=== PATIENT | female | born 1940 | race Caucasian/White ===

== ENCOUNTER 2018-07-20 13:33 | Day surgery (SDC) | payer MEDICARE, BC ==
[~2018-07-20] VITALS: Ht 172.7 cm; Wt 111.4 kg
[~2018-07-20 13:33] MED LIST: ASPI-611 PO; SOTA80TA73 PO
[2018-07-20] MEDS ORDERED: fentaNYL/PF 50MCG/1 ML 2ML syringe ONE ×2 (13:43)
[2018-07-20] MEDS ORDERED: MIDAZolam 5mg/5ml vial ONE (13:43)
[2018-07-20 13:45] VITALS: BP 172/82
[2018-07-20 15:41] VITALS: BP 142/74
[2018-07-20 15:49] VITALS: BP 132/70
[2018-07-20 15:59] VITALS: BP 133/68
[2018-07-20 16:09] VITALS: BP 137/61
== END 2018-07-20 16:20 | disposition home or self-care (01) ==
LOC: GI LAB 13:33
PROVIDERS: ATTEND Internal Medicine Gastroenterology
DX: R19.4 Change in bowel habit (principal); I48.91 Unspecified atrial fibrillation; I10 Essential (primary) hypertension; E66.9 Obesity, unspecified; M19.90 Unspecified osteoarthritis, unspecified site; I25.10 Atherosclerotic heart disease of native coronary artery without angina pectoris; Z86.79 Personal history of other diseases of the circulatory system; Z86.39 Personal history of other endocrine, nutritional and metabolic disease; Z90.710 Acquired absence of both cervix and uterus; Z95.0 Presence of cardiac pacemaker; Z68.37 Body mass index [BMI] 37.0-37.9, adult; Z88.1 Allergy status to other antibiotic agents; Z90.49 Acquired absence of other specified parts of digestive tract; Z88.5 Allergy status to narcotic agent; Z79.899 Other long term (current) drug therapy; Z98.890 Other specified postprocedural states
CPT/HCPCS: 45380; G0500; J2250; J3010; J7030; A4620

== ENCOUNTER 2021-01-29 06:04 | Day surgery (SDC) | payer MEDICARE, MEDICAID ==
[2021-01-28 12:53] LABS: BASOPHILS % (AUTO) 0.5 % (0-1); EOSINOPHILS # (AUTO) 0.3 X10'3 (0-0.9); HEMATOCRIT 48.4 % (35.0-45.0); HEMOGLOBIN 15.8 g/dl (12.0-16.0); LYMPHOCYTES # (AUTO) 1.2 X10'3 (1.1-4.8); LYMPHOCYTES % (AUTO) 14.1 % (21-51); MEAN CORPUSCULAR HEMOGLOBIN 29.9 PG (27.0-31.0); MEAN CORPUSCULAR HGB CONC 32.7 g/dL (33.0-36.5); MEAN CORPUSCULAR VOLUME 91.4 FL (78-98); MEAN PLATELET VOLUME 9.4 FL (7.4-10.4); NEUTROPHILS % (AUTO) 69.4 % (42-75); PLATELET COUNT 174 X10'3 (140-440); RED BLOOD COUNT 5.29 X10'6 (4.20-5.60); RED CELL DISTRIBUTION WIDTH 14.1 % (11.5-14.5); WHITE BLOOD COUNT 8.6 X10'3 (4.5-11.0)
[2021-01-28 13:04] LABS: PARTIAL THROMBOPLASTIN TIME 26 SECONDS (22-32)
[2021-01-28 13:15] LABS: ALBUMIN 3.5 G/DL (3.4-5.0); ANION GAP 7 (8-16); BLOOD UREA NITROGEN 19 MG/DL (7-18); BUN/CREATININE RATIO 21.3 (6.6-38.0); CALCIUM 9.8 MG/DL (8.5-10.1); CHLORIDE 103 MMOL/L (99-107); CREATININE 0.89 MG/DL (0.40-0.90); GLUCOSE 102 MG/DL (70-104); POTASSIUM 4.3 MMOL/L (3.5-5.1); SODIUM 139 MMOL/L (135-145); TOTAL CARBON DIOXIDE 28.6 MMOL/L (24-32); eGFR 61 ML/MIN
[2021-01-29] VITALS (10 sets, daily range): BP systolic 111–162; BP diastolic 60–97
[~2021-01-29] VITALS: Ht 172.7 cm; Wt 111.8 kg
[~2021-01-29 06:04] MED LIST changes: -ASPI-611 PO
[2021-01-29] MEDS ORDERED: LORazepam 0.5 MG tablet PO PRN (06:25)
[2021-01-29] MEDS ORDERED: diphenhydrAMINE 25mg capsule PO PRN (06:25)
[2021-01-29] MEDS ORDERED: LIDOcaine/PRILOcaine 5gm cream TP ONE (06:25)
[2021-01-29] MEDS ORDERED: normal saline 1,000 ML IV SCH (06:25)
[2021-01-29] MEDS ORDERED: POTA20TA19 PO (06:33)
[2021-01-29] MEDS ORDERED: FURO-149 PO (06:33)
[2021-01-29] MEDS ORDERED: ASPI-10 PO (06:33)
[2021-01-29] MEDS ORDERED: verapamil 2.5 mg/ml inj IV ONE (07:35)
[2021-01-29] MEDS ORDERED: midazolam 1 mg/ML 2ml injection ONE (07:35)
[2021-01-29] MEDS ORDERED: heparin 1,000unit/ml 10ml vial 10 ML ONE (07:35)
[2021-01-29] MEDS ORDERED: LIDOcaine 1% (10mg/ml)w/preservative injection 20ml MDV ONE (07:35)
[2021-01-29] MEDS ORDERED: fentaNYL/PF 50MCG/1 ML 2ML syringe ONE (07:35)
[2021-01-29] MEDS ORDERED: nitroGLYCERIN-Tridil 50MG/D5W 250 ML IV ONE (07:35)
[2021-01-29] MEDS ORDERED: iohexol 350 MG/ML 50ML vial IV ONE (07:36)
[2021-01-29] MEDS ORDERED: iohexol 350MG/ML 100ml bottle IV ONE (07:36)
[2021-01-29 09:23] LABS: ISTAT Hct ART 47 %PCV (35-48); ISTAT O2 SATURATION ARTERIAL 89 % (95-98); ISTAT SOURCE ART
[2021-01-29 11:23] LABS: ISTAT Hct MIX 46 %PCV (35-48); ISTAT O2 SATURATION MIX VENOUS 62 % (60-80); ISTAT SOURCE CAP
== END 2021-01-29 12:45 | disposition home or self-care (01) ==
LOC: SSTAY O 06:04
PROVIDERS: ATTEND Internal Medicine Cardiovascular Disease
DX: R06.02 Shortness of breath (principal); R53.83 Other fatigue; I25.10 Atherosclerotic heart disease of native coronary artery without angina pectoris; I48.0 Paroxysmal atrial fibrillation; I10 Essential (primary) hypertension; E78.5 Hyperlipidemia, unspecified; I50.31 Acute diastolic (congestive) heart failure; I27.29 Other secondary pulmonary hypertension; G62.9 Polyneuropathy, unspecified; E66.9 Obesity, unspecified; Z68.36 Body mass index [BMI] 36.0-36.9, adult; Z95.0 Presence of cardiac pacemaker; Z88.5 Allergy status to narcotic agent; Z79.899 Other long term (current) drug therapy; Z79.82 Long term (current) use of aspirin; Z90.710 Acquired absence of both cervix and uterus; Z90.49 Acquired absence of other specified parts of digestive tract; Z98.890 Other specified postprocedural states; Z82.49 Family history of ischemic heart disease and other diseases of the circulatory system
CPT/HCPCS: 36415; 76937; 80048; 82803; 85014; 85025; 85610; 85730; 93005; 93460; 99152; 99153; C1769; C1894; J1644; J2001; J2250; J3010; J7030; Q0163; Q9967; A4620; A5120; C1751; J3490

== ENCOUNTER 2022-09-23 15:16 | Inpatient (IN) | payer MEDICARE, MEDICAID ==
[~2022-09-23] VITALS: Ht 172.7 cm; Wt 115.8 kg
[~2022-09-23 15:16] MED LIST changes: +ASPI-10 PO; +FURO-149 PO; +POTA-207 PO
[2022-09-23] MEDS ORDERED: metolazone 2.5mg tablet PO STA (15:21)
[2022-09-23 15:57] LABS: BASOPHILS # (AUTO) 0.1 X10'3 (0-0.2); BASOPHILS % (AUTO) 0.7 % (0-1); EOSINOPHILS # (AUTO) 0.2 X10'3 (0-0.9); EOSINOPHILS % (AUTO) 2.1 % (0-6); HEMATOCRIT 52.3 % (35.0-45.0); HEMOGLOBIN 17.1 g/dl (12.0-16.0); LYMPHOCYTES # (AUTO) 1.5 X10'3 (1.1-4.8); LYMPHOCYTES % (AUTO) 17.7 % (21-51); MEAN CORPUSCULAR HEMOGLOBIN 30.4 PG (27.0-31.0); MEAN CORPUSCULAR HGB CONC 32.7 g/dL (33.0-36.5); MEAN CORPUSCULAR VOLUME 93.1 FL (78-98); MEAN PLATELET VOLUME 9.6 FL (7.4-10.4); MONOCYTES # (AUTO) 1.3 X10'3 (0-0.9); MONOCYTES % (AUTO) 14.7 % (2-12); NEUTROPHILS # (AUTO) 5.5 X10'3 (1.8-7.7); NEUTROPHILS % (AUTO) 64.8 % (42-75); PLATELET COUNT 166 X10'3 (140-440); RED BLOOD COUNT 5.62 X10'6 (4.20-5.60); RED CELL DISTRIBUTION WIDTH 16.1 % (11.5-14.5); WHITE BLOOD COUNT 8.5 X10'3 (4.5-11.0)
[2022-09-23 16:07] LABS: ALANINE AMINOTRANSFERASE 18 U/L (12-78); ALBUMIN 3.7 G/DL (3.4-5.0); ALKALINE PHOSPHATASE 203 IU/L (46-116); ANION GAP 10 (8-16); ASPARTATE AMINO TRANSFERASE 25 U/L (10-37); BLOOD UREA NITROGEN 29 MG/DL (7-18); BUN/CREATININE RATIO 25.2 (6.6-38.0); CALCIUM 9.9 MG/DL (8.5-10.1); CHLORIDE 103 MMOL/L (99-107); CREATININE 1.15 MG/DL (0.40-0.90); GLUCOSE 120 MG/DL (70-104); POTASSIUM 5.5 MMOL/L (3.5-5.1); SODIUM 135 MMOL/L (135-145); TOTAL CARBON DIOXIDE 22.1 MMOL/L (24-32); TOTAL PROTEIN 7.3 G/DL (6.4-8.2); eGFR 45 ML/MIN
[2022-09-23] MEDS ORDERED: furosemide 10 MG/1 ML 10ml inj IV ONE ×2 (16:35→21:45)
[2022-09-23] MEDS ORDERED: metoprolol tartrate 1mg/ml inj IV ONE (16:35)
[2022-09-23] MEDS ORDERED: potassium Cl 40MEQ/1/2NS 520ml 520 ML IV PRN (16:55)
[2022-09-23] MEDS ORDERED: bisacodyl 10mg suppository rectal RC PRN (16:55)
[2022-09-23] MEDS ORDERED: acetaminophen 325mg tablet PO PRN ×2 (16:55)
[2022-09-23] MEDS ORDERED: potassium Cl 20 mEq SR tablet PO PRN (16:55)
[2022-09-23] MEDS ORDERED: magnesium hydroxide 30ml (MOM) UD suspension PO PRN (16:55)
[2022-09-23] MEDS ORDERED: mag hydrox/Alum hydrox/simeth 30ml oral suspension PO PRN (16:55)
[2022-09-23] MEDS ORDERED: ondansetron/PF 4mg/2ml inj IV PRN (16:55)
[2022-09-23] MEDS ORDERED: PERFLUTREN PROTEIN-A MICROSPHR (Optison) 0.22 MG/ML 3ML VIAL IV ONE (16:55)
[2022-09-23] MEDS ORDERED: acetaminophen 650mg rectal suppository RC PRN (16:55)
[2022-09-23] MEDS ORDERED: diphenhydrAMINE 25mg capsule PO PRN (16:55)
[2022-09-23] MEDS ORDERED: magnesium 4gm in 100ml NS 100 ML IV PRN (16:55)
[2022-09-23] MEDS ORDERED: magnesium Cl slow-release 64mg tablet PO PRN (16:55)
[2022-09-23] MEDS ORDERED: TRAZ-251 PO (17:02)
[2022-09-23] MEDS ORDERED: POTA-207 PO (17:02)
[2022-09-23] MEDS ORDERED: FURO20TA4 PO (17:02)
[2022-09-23] MEDS ORDERED: SOTA80TA PO (17:02)
[2022-09-23] MEDS ORDERED: IBUP-1985 PO (17:02)
[2022-09-23] MEDS ORDERED: LIDO700A47 TP (17:02)
[2022-09-23] MEDS ORDERED: TRAM50TA2 PO (17:02)
[2022-09-23] MEDS ORDERED: LEVO50TA8 PO (17:02)
[2022-09-23] MEDS ORDERED: CYCL5TAB PO (17:02)
[2022-09-23] MEDS: amiodarone/D5 360MG/200ML BAG 200 ML IV SCH (17:28)
[2022-09-23] MEDS ORDERED: amiodarone 150mg/dext, iso-os 100 ML IV ONE (17:35)
[2022-09-23 17:38] LABS: HEMOGLOBIN A1C 5.8 % (4.5-6.2)
[2022-09-23] MEDS ORDERED: furosemide inj 100 MG in normal saline 100ml IV soln 90 ML IV SCH (17:45)
[2022-09-23] MEDS ORDERED: LIDOcaine 5% patch TP PRN (19:00)
[2022-09-23] MEDS: K and/or MAG REPLACEMENT MC SCH (20:00)
[2022-09-23] MEDS: docusate sod 100mg capsule PO SCH (22:39)
[2022-09-23] MEDS: carvedilol 6.25mg tablet PO SCH (22:39)
[2022-09-23] MEDS: traZODone 50mg tablet PO SCH (22:39)
[2022-09-24] MEDS: amiodarone/D5 360MG/200ML BAG 200 ML IV SCH ×4 (00:45→12:50)
[2022-09-24 03:36] LABS: BASOPHILS % (AUTO) 0.6 % (0-1); EOSINOPHILS # (AUTO) 0.1 X10'3 (0-0.9); EOSINOPHILS % (AUTO) 1.8 % (0-6); HEMATOCRIT 51.5 % (35.0-45.0); HEMOGLOBIN 16.9 g/dl (12.0-16.0); LYMPHOCYTES # (AUTO) 1.7 X10'3 (1.1-4.8); LYMPHOCYTES % (AUTO) 22.8 % (21-51); MEAN CORPUSCULAR HEMOGLOBIN 30.7 PG (27.0-31.0); MEAN CORPUSCULAR HGB CONC 32.9 g/dL (33.0-36.5); MEAN CORPUSCULAR VOLUME 93.4 FL (78-98); MONOCYTES # (AUTO) 1.2 X10'3 (0-0.9); MONOCYTES % (AUTO) 16.6 % (2-12); NEUTROPHILS # (AUTO) 4.3 X10'3 (1.8-7.7); NEUTROPHILS % (AUTO) 58.2 % (42-75); PLATELET COUNT 140 X10'3 (140-440); RED BLOOD COUNT 5.52 X10'6 (4.20-5.60); RED CELL DISTRIBUTION WIDTH 15.6 % (11.5-14.5); WHITE BLOOD COUNT 7.3 X10'3 (4.5-11.0)
[2022-09-24 03:51] LABS: ALANINE AMINOTRANSFERASE 18 U/L (12-78); ALBUMIN 3.6 G/DL (3.4-5.0); ALBUMIN/GLOBULIN RATIO 1.1 (1.1-1.5); ALKALINE PHOSPHATASE 183 IU/L (46-116); ANION GAP 8 (8-16); ASPARTATE AMINO TRANSFERASE 26 U/L (10-37); BILIRUBIN,TOTAL 1.3 MG/DL (0.1-1.0); BLOOD UREA NITROGEN 30 MG/DL (7-18); BUN/CREATININE RATIO 25.4 (6.6-38.0); CALCIUM 9.9 MG/DL (8.5-10.1); CHLORIDE 102 MMOL/L (99-107); CREATININE 1.18 MG/DL (0.40-0.90); GLUCOSE 114 MG/DL (70-104); POTASSIUM 4.2 MMOL/L (3.5-5.1); SODIUM 138 MMOL/L (135-145); TOTAL CARBON DIOXIDE 28.5 MMOL/L (24-32); eGFR 44 ML/MIN
[2022-09-24 03:56] LABS: CHOL/HDL RATIO 3.8 (0.00-4.99); CHOLESTEROL 106 MG/DL (0-200); HDL CHOLESTEROL 28 MG/DL (35-60); LDL CHOLESTEROL 67 MG/DL (50-100); PHOSPHORUS 4.1 MG/DL (2.3-4.5); TRIGLYCERIDES 91 MG/DL (20-135)
--- NOTE | 2022-09-24 04:19 | NUR ---
CALLED TO DISCUSS CONTINUING AMIODARONE DRIP. HE STATED HE WOULD LIKE IT TO CONTINUE FOR NOW. NOTIFIED THAT PT HAS HAD RUNS OF PVC'S. NO ORDERS AT THIS TIME
[2022-09-24 05:55] LABS: CLARITY,URINE CLEAR (Clear); GLUCOSE, URINE NEGATIVE (Neg); KETONES,URINE NEGATIVE (Neg); LEUKOCYTE ESTERASE ,URINE NEGATIVE (Neg); NITRITES, URINE NEGATIVE (Neg); OCCULT BLOOD,URINE NEGATIVE (Neg); PROTEIN,URINE NEGATIVE (Neg); UROBILINOGEN,URINE 0.2 E.U/dL (0.2-1.0)
[2022-09-24 05:56] LABS: COLOR,URINE STRAW (Yellow); UA COLLECTION TYPE NON-SPECIFIED
[2022-09-24] MEDS: K and/or MAG REPLACEMENT MC SCH ×2 (07:21→20:00)
[2022-09-24] MEDS: levoTHYROXINE 25mcg tablet PO SCH (07:54)
[2022-09-24] MEDS: docusate sod 100mg capsule PO SCH ×2 (07:54→21:23)
[2022-09-24] MEDS: carvedilol 6.25mg tablet PO SCH ×2 (07:55→21:23)
[2022-09-24] MEDS: furosemide 10 MG/1 ML 10ml inj IV SCH ×2 (07:55→21:23)
--- NOTE | 2022-09-24 08:20 | NUR ---
Doctor Carlee came by the see patient, new orders were verbally told to me to put in. New orders have been placed at this time.
[2022-09-24 09:06] LABS: BILIRUBIN,DIRECT 0.9 MG/DL (0-0.3)
[2022-09-24] MEDS: metolazone 2.5mg tablet PO SCH ×2 (09:52→21:25)
[2022-09-24] MEDS ORDERED: ondansetron 4mg rapidly disintigrating tab PO PRN (15:10)
[2022-09-24 18:09] VITALS: BP 103/62
[2022-09-24] MEDS: apixaban 5mg tablet PO SCH (21:24)
[2022-09-24] MEDS: traZODone 50mg tablet PO SCH (21:24)
[2022-09-24] MEDS: amiodarone 200mg tablet PO SCH (21:24)
[2022-09-24] MEDS: traMADol 50MG tablet PO PRN (21:32)
[2022-09-24 22:14] VITALS: BP 108/55
[2022-09-25 02:49] VITALS: BP 124/51
[2022-09-25] MEDS: cyclobenzaprine 10mg tablet PO PRN (04:38)
[2022-09-25 07:00] VITALS: BP 116/73
[2022-09-25 07:03] LABS: BASOPHILS % (AUTO) 0.5 % (0-1); EOSINOPHILS # (AUTO) 0.2 X10'3 (0-0.9); EOSINOPHILS % (AUTO) 3.2 % (0-6); HEMATOCRIT 48.9 % (35.0-45.0); HEMOGLOBIN 15.7 g/dl (12.0-16.0); LYMPHOCYTES # (AUTO) 0.8 X10'3 (1.1-4.8); LYMPHOCYTES % (AUTO) 10.5 % (21-51); MEAN CORPUSCULAR HEMOGLOBIN 29.5 PG (27.0-31.0); MEAN CORPUSCULAR VOLUME 92.2 FL (78-98); MEAN PLATELET VOLUME 9.1 FL (7.4-10.4); MONOCYTES # (AUTO) 1.1 X10'3 (0-0.9); MONOCYTES % (AUTO) 14.8 % (2-12); NEUTROPHILS # (AUTO) 5.2 X10'3 (1.8-7.7); PLATELET COUNT 145 X10'3 (140-440); RED CELL DISTRIBUTION WIDTH 15.8 % (11.5-14.5); WHITE BLOOD COUNT 7.3 X10'3 (4.5-11.0)
[2022-09-25 07:26] LABS: ALANINE AMINOTRANSFERASE 13 U/L (12-78); ALBUMIN 3.2 G/DL (3.4-5.0); ALBUMIN/GLOBULIN RATIO 1.1 (1.1-1.5); ALKALINE PHOSPHATASE 175 IU/L (46-116); ANION GAP 5 (8-16); ASPARTATE AMINO TRANSFERASE 23 U/L (10-37); BILIRUBIN,TOTAL 1.2 MG/DL (0.1-1.0); BLOOD UREA NITROGEN 34 MG/DL (7-18); BUN/CREATININE RATIO 28.6 (6.6-38.0); CALCIUM 9.4 MG/DL (8.5-10.1); CHLORIDE 100 MMOL/L (99-107); CREATININE 1.19 MG/DL (0.40-0.90); GLUCOSE 114 MG/DL (70-104); MAGNESIUM 1.8 MG/DL (1.5-2.4); PHOSPHORUS 4.5 MG/DL (2.3-4.5); POTASSIUM 3.2 MMOL/L (3.5-5.1); SODIUM 140 MMOL/L (135-145); TOTAL CARBON DIOXIDE 35.2 MMOL/L (24-32); TOTAL PROTEIN 6.2 G/DL (6.4-8.2); eGFR 43 ML/MIN
[2022-09-25] MEDS ORDERED: rivaroxaban 10mg tablet PO SCH (08:00)
[2022-09-25] MEDS: K and/or MAG REPLACEMENT MC SCH ×2 (08:00→19:04)
[2022-09-25] MEDS: docusate sod 100mg capsule PO SCH ×2 (08:16→19:16)
[2022-09-25] MEDS: apixaban 5mg tablet PO SCH ×2 (08:16→19:16)
[2022-09-25] MEDS: metolazone 2.5mg tablet PO SCH ×2 (08:16→19:16)
[2022-09-25] MEDS: carvedilol 6.25mg tablet PO SCH ×2 (08:16→19:16)
[2022-09-25] MEDS: amiodarone 200mg tablet PO SCH ×2 (08:16→19:16)
[2022-09-25] MEDS: furosemide 10 MG/1 ML 10ml inj IV SCH ×2 (08:17→19:17)
[2022-09-25] MEDS: potassium Cl 20 mEq SR tablet PO PRN ×3 (08:22→15:54)
[2022-09-25] MEDS: levoTHYROXINE 25mcg tablet PO SCH (08:22)
--- NOTE | 2022-09-25 11:57 | NUR ---
paged to confirm dosage of K+
[2022-09-25] MEDS ORDERED: potassium Cl 20 mEq SR tablet PO ONE (12:00)
[2022-09-25] MEDS ORDERED: furosemide 40mg/4ml inj IV ONE (12:00)
[2022-09-25 18:00] VITALS: BP 143/89
[2022-09-25] MEDS: traMADol 50MG tablet PO PRN (19:17)
[2022-09-25] MEDS: traZODone 50mg tablet PO SCH (20:09)
[2022-09-25 23:15] VITALS: BP 123/83
[2022-09-26 02:28] VITALS: BP 131/79
[2022-09-26 06:00] VITALS: BP 141/90
[2022-09-26 07:01] LABS: BASOPHILS % (AUTO) 0.4 % (0-1); EOSINOPHILS # (AUTO) 0.2 X10'3 (0-0.9); EOSINOPHILS % (AUTO) 2.9 % (0-6); HEMATOCRIT 49.7 % (35.0-45.0); HEMOGLOBIN 16.2 g/dl (12.0-16.0); LYMPHOCYTES # (AUTO) 0.8 X10'3 (1.1-4.8); LYMPHOCYTES % (AUTO) 10.1 % (21-51); MEAN CORPUSCULAR HGB CONC 32.7 g/dL (33.0-36.5); MEAN CORPUSCULAR VOLUME 91.8 FL (78-98); MEAN PLATELET VOLUME 8.9 FL (7.4-10.4); MONOCYTES # (AUTO) 1.2 X10'3 (0-0.9); MONOCYTES % (AUTO) 14.9 % (2-12); NEUTROPHILS % (AUTO) 71.7 % (42-75); PLATELET COUNT 152 X10'3 (140-440); RED BLOOD COUNT 5.41 X10'6 (4.20-5.60); RED CELL DISTRIBUTION WIDTH 15.6 % (11.5-14.5); WHITE BLOOD COUNT 8.4 X10'3 (4.5-11.0)
[2022-09-26 07:22] LABS: ALANINE AMINOTRANSFERASE 18 U/L (12-78); ALBUMIN 3.6 G/DL (3.4-5.0); ALBUMIN/GLOBULIN RATIO 1.1 (1.1-1.5); ALKALINE PHOSPHATASE 189 IU/L (46-116); ANION GAP 7 (8-16); ASPARTATE AMINO TRANSFERASE 26 U/L (10-37); BILIRUBIN,TOTAL 1.7 MG/DL (0.1-1.0); BLOOD UREA NITROGEN 38 MG/DL (7-18); BUN/CREATININE RATIO 25.5 (6.6-38.0); CALCIUM 9.7 MG/DL (8.5-10.1); CHLORIDE 97 MMOL/L (99-107); CREATININE 1.49 MG/DL (0.40-0.90); GLUCOSE 119 MG/DL (70-104); PHOSPHORUS 4.2 MG/DL (2.3-4.5); POTASSIUM 3.8 MMOL/L (3.5-5.1); SODIUM 139 MMOL/L (135-145); TOTAL CARBON DIOXIDE 35.3 MMOL/L (24-32); TOTAL PROTEIN 6.9 G/DL (6.4-8.2); eGFR 33 ML/MIN
[2022-09-26] MEDS: amiodarone 200mg tablet PO SCH (07:46)
[2022-09-26] MEDS: furosemide 10 MG/1 ML 10ml inj IV SCH (07:46)
[2022-09-26] MEDS: apixaban 5mg tablet PO SCH (07:46)
[2022-09-26] MEDS: metolazone 2.5mg tablet PO SCH (07:46)
[2022-09-26] MEDS: levoTHYROXINE 25mcg tablet PO SCH (07:47)
[2022-09-26] MEDS: docusate sod 100mg capsule PO SCH (07:47)
[2022-09-26] MEDS: carvedilol 6.25mg tablet PO SCH (07:47)
[2022-09-26] MEDS: K and/or MAG REPLACEMENT MC SCH (07:53)
[2022-09-26] MEDS: cyclobenzaprine 10mg tablet PO PRN (10:20)
[2022-09-26] MEDS: traMADol 50MG tablet PO PRN (10:20)
[2022-09-26] MEDS ORDERED: AMIO200T67 PO (11:21)
[2022-09-26] MEDS ORDERED: CARV6.253 PO (11:21)
[2022-09-26] MEDS ORDERED: ZAR2.5T PO (11:21)
[2022-09-26] MEDS ORDERED: APIX5TAB3 PO (11:21)
--- NOTE | 2022-09-26 13:55 | NUR ---
Messaged regarding patient's need for change in pharmacy. "[id number]: pt's ride will not get here til after 5pm. Pharmacy closes at 6pm. need prescription called into new pharmacy. pref pharm updated. Thanks, Caitlyn"
--- NOTE | 2022-09-26 18:38 | NUR ---
Patient discharged in stable condition. Daughter came to pickler helper. Pt aox4, PIV removed. Packet reviewed with patient and daughter. Patient wheeled out to lobby.
== END 2022-09-26 18:01 | disposition home health service (06) | DRG 308 ==
LOC: ER 15:17 → ED HOLD 17:04 → PCU 3S 09-24 17:40
PROVIDERS: ADMIT Family Medicine; ATTEND Family Medicine
DX: I48.91 Unspecified atrial fibrillation (principal); I50.33 Acute on chronic diastolic (congestive) heart failure; I25.10 Atherosclerotic heart disease of native coronary artery without angina pectoris; E03.9 Hypothyroidism, unspecified; E66.01 Morbid (severe) obesity due to excess calories; E78.5 Hyperlipidemia, unspecified; I07.1 Rheumatic tricuspid insufficiency; I27.20 Pulmonary hypertension, unspecified; G62.9 Polyneuropathy, unspecified; E87.5 Hyperkalemia; I49.5 Sick sinus syndrome; N18.30 Chronic kidney disease, stage 3 unspecified; E80.4 Gilbert syndrome; E80.6 Other disorders of bilirubin metabolism; Z60.2 Problems related to living alone; I87.2 Venous insufficiency (chronic) (peripheral); L53.9 Erythematous condition, unspecified; Z79.01 Long term (current) use of anticoagulants; Z79.890 Hormone replacement therapy; Z79.899 Other long term (current) drug therapy; Z80.1 Family history of malignant neoplasm of trachea, bronchus and lung; Z82.0 Family history of epilepsy and other diseases of the nervous system; Z90.710 Acquired absence of both cervix and uterus; Z91.199 Patient's noncompliance with other medical treatment and regimen due to unspecified reason; Z95.0 Presence of cardiac pacemaker; Z68.38 Body mass index [BMI] 38.0-38.9, adult; Z88.5 Allergy status to narcotic agent; Z90.49 Acquired absence of other specified parts of digestive tract; Z71.3 Dietary counseling and surveillance
CPT/HCPCS: 36415; 71045; 80053; 80061; 81003; 82248; 83036; 83735; 83880; 84100; 84132; 84145; 84443; 84484; 85025; 93005; 93306; 93970; 97161; 97530; 99285; A4615; G0378; J0282; J1940; J3490